=== PATIENT | female | born 1980 | race Asian ===

== ENCOUNTER 2016-11-06 14:32 | Emergency (ER) | payer OTHER ==
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
== END 2016-11-06 15:45 | disposition home or self-care (01) ==
LOC: CFTX 14:32
DX: S16.1XXA Strain of muscle, fascia and tendon at neck level, initial encounter (principal); S39.012A Strain of muscle, fascia and tendon of lower back, initial encounter; S20.219A Contusion of unspecified front wall of thorax, initial encounter; V49.40XA Driver injured in collision with unspecified motor vehicles in traffic accident, initial encounter; Y92.488 Other paved roadways as the place of occurrence of the external cause
CPT/HCPCS: 71020; 72040; 72100; 84703; 99284